=== PATIENT | female | born 1970 | race Caucasian/White ===

== ENCOUNTER 2017-01-21 08:11 | Day surgery (SDC) | payer BC ==
[~2017-01-21] VITALS: Ht 170.2 cm; Wt 74.8 kg
[2017-01-21] MEDS ORDERED: VYVANSE70 MG PO (08:57)
[2017-01-21] MEDS ORDERED: DUEXIS 800-26.1 EACH PO (08:58)
[2017-01-21] MEDS ORDERED: XANAX1 MG PO (08:59)
[2017-01-21] MEDS ORDERED: PERCOCET 10/3251 TA1 PO ×2 (08:59→14:36)
[2017-01-21] MEDS ORDERED: BUTALB-APAP-CA1 EACH PO (08:59)
[2017-01-21] MEDS ORDERED: PROAIR HFA8.5 GM INH (09:00)
[2017-01-21] MEDS ORDERED: WELLBUTRIN SR150 MG PO (09:00)
[2017-01-21] MEDS ORDERED: ZANAFLEX4 MG PO (09:02)
[2017-01-21 09:13] VITALS: BP 125/76; Ht 170.2 cm; Wt 74.8 kg
[2017-01-21 10:33] LABS: HEMATOCRIT 43.3 % (36.0-48.0); HEMOGLOBIN 14.3 g/dL (12-16); MCH 28.4 pg (26.0-34.0); MCV 86.1 fL (80.0-100.0); MEAN PLATELET VOLUME 9.9 fL (7.4-10.4); RBC 5.03 10x6/uL (4.00-5.40); WBC 7.5 10x3/uL (4.8-10.8)
[2017-01-21 13:14] LABS: HCG SERUM NEGATIVE (NEGATIVE)
[2017-01-21] MEDS ORDERED: CYCLOBENZAPRINE10 MG PO (14:36)
--- NOTE | 2017-01-21 17:53 | NUR ---
1600 IV DC WITH CATHER TIP INTACT
--- NOTE | 2017-01-24 11:00 | OP ---
PATIENT NAME: JAMARI PASTRANA MEDICAL RECORD: [id number] :68 [facility] ADMISSION DATE: SURGEON: GIORGIO ACHARYA MD DATE OF OPERATION: 01/21/2017 PREOPERATIVE DIAGNOSES: Right knee lateral meniscus tear and right knee lateral subcondylar fracture. POSTOPERATIVE DIAGNOSES: Right knee lateral meniscus tear and right knee lateral subcondylar fracture plus right medial femoral condyle, grade IV chondromalacia. PROCEDURE PERFORMED: Right knee chondroplasty, right knee chondroplasty of the medial femoral condyle and a right knee partial lateral meniscectomy. SURGEON: Man Acharya MD ANESTHESIA: General with a postoperative block for postop pain. CONDITION: She tolerated the procedure well, was transferred to the recovery room in stable condition at termination of the procedure. INDICATIONS: This is a 46-year-old female with pain in her knee, meniscus tear noted on MRI with a subchondral defect or lesion with subchondral fracturing. We discussed options with her and elected to proceed with the knee scope as well chondroplasty. We discussed risks, benefits, and alternatives including continued pain. She understood and wished to proceed. OPERATIVE REPORT: The patient was taken to the operating room, placed in supine position. General anesthesia was obtained. Right knee was confirmed to be the correct knee. It was prepped and draped in normal fashion. She did receive Ancef per protocol. Procedure was begun by making portal sites and injecting them 0.25% Marcaine with epinephrine. I then established an anterior lateral portal for the scope and inflow and the superior medial portal for the outflow. The scope was inserted into the anterolateral portal. The patellofemoral joint was inspected, which she did have some grade I and II fibrillations in the patellofemoral joint. Dropping down the medial gutter into the medial joint, she was immediately noted to have a fairly large medial femoral condyle lesion down to the bone. I established an anteromedial portal under direct visualization. This area was debrided. There was no medial meniscus tear. Moving to the notch, the ACL and PCL were notably intact. Going laterally, she had a lateral meniscus tear and some grade I-II fibrillation on the lateral tibial plateau. This area was debrided. I went back. I got a 62 K-wire, we did ____, therefore, I drilled multiple holes into the medial femoral condyle to visualize bleeding. I then took the scope out, brought in the C-arm, placed the trocar into the lesion of her subchondral area of the lateral tibial plateau. We filled ____ of the AccuFill. This was placed into this defect. The trocar was held in place for 10 minutes until it was able to be removed. I then put the scope back in the knee and did verify that there were no AccuFill that has gotten to the knee as well as did visualize bleeding from the multiple holes in the medial femoral condyle. She was then closed, injected with Duramorph. I closed with 3-0 Prolene. We will have her nonweightbearing. We will proceed from her with this juncture, see in the office in about 2 weeks. She was closed with 3-0 Prolene and soft dressing and all needle and sponge counts were correct. OPERATIVE REPORT [id number] VICTORIANOJAMARI TRANSINT:[id number] Voice Confirmation ID: [id number] DOCUMENT ID: [id number] GIORGIO ACHARYA MD at 1100 CC: [id number] DICTATION DATE: 01/21/17 1449 [place]: 01/21/17 2315 [facility] 01/21/17 [id number] [place] [address]
== END 2017-01-21 16:20 | disposition home or self-care (01) ==
LOC: D.OPS 08:11 → D.PAN 10:15 → D.OPS 16:20
PROVIDERS: Anesthesiology
DX: S83.281A Other tear of lateral meniscus, current injury, right knee, initial encounter (principal); M94.261 Chondromalacia, right knee

== ENCOUNTER → 2017-02-19 11:09 | Outpatient (CLI) | payer BC ==
[2017-01-21 09:13] VITALS: BMI 25.9
[~2017-02-19 11:09] MED LIST: BUTALB-APAP-CA1 EACH PO; CYCLOBENZAPRINE10 MG PO; DUEXIS 800-26.1 EACH PO; PERCOCET 10/3251 TA1 PO; PROAIR HFA8.5 GM INH; VYVANSE70 MG PO; WELLBUTRIN SR150 MG PO; XANAX1 MG PO; ZANAFLEX4 MG PO
== END | disposition home or self-care (01) ==
LOC: D.MRI 11:09
DX: M25.511 Pain in right shoulder (principal)

== ENCOUNTER → 2018-12-23 13:07 | Outpatient (CLI) | payer OTHER ==
[2017-01-21 09:13] VITALS: BMI 25.9
== END | disposition home or self-care (01) ==
LOC: D.RAD 13:00
PROVIDERS: ATTEND Pediatrics
DX: Z02.71 Encounter for disability determination (principal)

== ENCOUNTER → 2019-03-09 10:10 | Outpatient (CLI) | payer MEDICAID ==
[2017-01-21 09:13] VITALS: BMI 25.9
== END | disposition home or self-care (01) ==
LOC: D.MRI 10:10
PROVIDERS: ATTEND Emergency Medicine
DX: M25.562 Pain in left knee (principal)

== ENCOUNTER 2021-03-14 12:34 | Emergency (ER) | payer BC ==
[~2021-03-14] VITALS: Ht 170.2 cm; Wt 74.1 kg
[2021-03-14 12:37] VITALS: Ht 170.2 cm; Wt 74.1 kg
[2021-03-14] MEDS ORDERED: IBUPROFEN800 MG PO (12:44)
[2021-03-14] MEDS ORDERED: PEPCID AC20 MG PO (12:45)
[2021-03-14 13:04] LABS: BASOPHILS 0.4 % (0-2); EOSINOPHILS 1.2 % (0-7); HEMATOCRIT 52.3 % (36.0-48.0); LYMPHOCYTES 21.4 % (15-50); MCH 28.8 pg (26.0-34.0); MCHC 32.4 g/dL (31.0-37.0); MCV 88.8 fL (80.0-100.0); MEAN PLATELET VOLUME 7.8 fL (7.4-10.4); MONOCYTES 7.5 % (2-11); NEUTROPHILS 69.5 % (40-80); PLATELET COUNT 306 10x3/uL (130-400); RBC 5.88 10x6/uL (4.00-5.40); RDW 13.7 % (11.5-14.5); WBC 8.6 10x3/uL (4.8-10.8)
[2021-03-14 13:10] LABS: CALC OSMOLALITY 267 mosm/kg (275-300); CALCIUM 9.4 mg/dL (8.5-10.1); CARBON DIOXIDE 28.1 mmol/L (21.0-32.0); CHLORIDE - SERUM 100 mmol/L (98-107); CREATININE - SERUM 0.9 mg/dL (0.6-1.3); GLUCOSE 119 mg/dL (74-106); POTASSIUM - SERUM 4.6 mmol/L (3.5-5.1); SODIUM 135 mmol/L (136-145); UREA NITROGEN 4 mg/dL (7-18); eGFR NON AFRICAN AMERICAN 70 mL/min (90-120)
[2021-03-14 13:19] LABS: ALBUMIN 3.9 g/dL (3.4-5.0); ALKALINE PHOSPHATASE 126 U/L (30-120); ALT (SGPT) 53 U/L (10-68); AMYLASE - SERUM 49 U/L (25-115); BILIRUBIN - TOTAL 0.36 mg/dL (0.2-1.3); LIPASE 65 U/L (73-393); TROPONIN-I < 0.017 ng/mL (0.000-0.060)
[2021-03-14 14:32] LABS: KETONE NEGATIVE (NEGATIVE); NITRITE NEGATIVE (NEGATIVE)
[2021-03-14 14:33] LABS: BILIRUBIN NEGATIVE (NEGATIVE); UROBILINOGEN NORMAL mg/dL (< 2)
[2021-03-14] MEDS ORDERED: LEVSIN/ANASP0.125 MG PO (15:32)
[2021-03-14] MEDS ORDERED: AMITIZA24 MCG PO (15:39)
[2021-03-14 16:01] VITALS: BP 158/92
== END 2021-03-14 16:01 | disposition other institution (70) ==
LOC: D.ER 12:34
PROVIDERS: Family Medicine
DX: R10.30 Lower abdominal pain, unspecified (principal); K76.89 Other specified diseases of liver